=== PATIENT | male | born 1965 | race Caucasian/White ===

== ENCOUNTER 2025-03-20 10:26 | Outpatient (AMB) | payer MEDICARE, SELFPAY ==
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
[2025-03-20 10:30] VITALS: BP 130/90; PULSE 122; O2SAT 98; BMI 30.1
--- OUTSIDE RECORDS SUMMARY | 2025-03-20 21:34 | XMS_ITS | Data Portability ---
Author Organization [place] [facility], Allergy Address [address] [place] [address] Care Team Providers Care Administrative Volunteer Name Role Phone BRETT WARREN Primary Care Provider [facility] Pill Packer Assessment Encounter Date Assessment Date Assessment LastModified by Organization Details LastModified Time 10/11/2024 10/11/2024 The right ear continues to remain well-healed following removal of cholesteatoma. No signs of recurrence or problems with the reconstruction. Left ear remains healthy appearing. Audiometric testing today shows similar level of sensorineural hearing thresholds in comparison to his last audiogram back in June 2023. Today we discussed that his hearing loss is due to his underlying sensorineural hearing thresholds, not related to his previous surgery. His current use of amplification is the best remedy for this type of loss. I recommended he bring the new audiogram back to his budget specialist in [place] to ensure that his hearing aids are adjusted to match his current level of hearing loss. Patient does not need further cholesteatoma surveillance but he may follow-up as needed. Not available 10/11/2024 11:52:41 Plan of Treatment Reminders Order Date Submit Date Provider Last Modified By Organization Details Last Modified Time Details Appointments None record ed. Lab None record ed. Referral None record ed. Procedures None record ed. Surgeries None record ed. Imaging None record ed. Medication Orders None record ed. Patient TargetsNo targets recorded. Patient InstructionsNo instructions recorded. Reason for Referral None Reported. Results Created Date Observation Date Name Description Value Unit Range Abnormal Flag Note LastModifiedBy Organization Detail LastModifiedTime 10/12/19 25 audio gram No observ ation record ed. BARCODE Not Available 2024 13:12:38 Result Notes None recorded. 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 [id number] 06546 Completed 201812/04/2023 Choleste atoma of attic, right ear; Note: Date Diagnose d: 9 3:46 PM (H71.01) Not Available [facility] 4 02:58:54 Mixed conducti ve and sensorin eural hearing loss, bilatera l 750295439 Active 2018 Mixed conducti ve and sensorin eural hearing loss, bilatera l; Note: Date Diagnose d: 9 9:07 AM (H90.6) AYSHA ZIMMERMAN MD [address] [place] [address], [place], [address] , [facility] 4 20:53:07 Partial loss of ear ossicles 30838551 Active 2018 Partial loss of ear ossicles , right ear; Note: Date Diagnose d: 12/10/2018 4:04 PM (H74.321 ) Not Available [facility] 4 02:58:56 Follow-u p visit Active 2018 Medical surveill ance followin g complete d treatmen t; Note: Date Diagnose d: 9 2:13 PM (Z09) Not Available [facility] 4 02:58:55 Otorrhea of right ear 43803893698 00106 Active 2020 Otorrhea , right ear; Note: Date Diagnose d: 1 11:57 AM (H92.11) Otorrh ea, right ear; Note: Date Diagnose d: 9 3:43 PM (H92.11) ; Start Date : 09/22/19 19 Not Available [facility] 4 02:58:56 Pain of left temporom andibula r joint 86671075047 679640 Active 2020 Arthralg ia of left temporom andibula r joint; Note: Date Diagnose d: 04/18/20 11:44 AM (M26.622 ) Not Available [facility] 4 02:58:56 Dental caries 74525559 Active 2020 Dental caries, unspecif ied; Note: Date Diagnose d: 04/18/20 11:44 AM (K02.9) Not Available [facility] 4 02:58:56 Dysfunct ion of reed goel eustachi an tubes 59635849772 19629 Active 2024 OUSMANE PEREIRA, [facility] [address],[place] [address], [place], [address] , [facility] 5 11:32:13 Mixed conducti ve and sensorin eural hearing loss, reed goel 640112225 Active 2024 OUSMANE PEREIRA, [facility] [address],[place] [address], [place], [address] , [facility] 5 11:33:56 Problem Notes None recorded. Procedures Surgical History Date Name Laterality Status Provider Name and Address Organization Details Recorded Time 10/11/2024 Comp Audio with Tymps - 78738 & 15620 completed OUSMANE PEREIRA, [address],[place] [address], [place], [address], [facility] 10/11/2024 11:31:46 Imaging Results None recorded. Procedure Notes None recorded. Medical Equipment None Reported. Allergies No known drug allergies Medications Name Sig Start Date Stop Date Status Note LastModified by Organization Details LastModified Time losartan 50 mg tablet TOME 1 TABLETA POR V A ORAL TODOS LOS D 10/11 completed Not Available Not Available Not Available atorvasta tin 80 mg tablet TOME 1 TABLETA POR V A ORAL TODOS LOS D AL ACOSTARS E active Not Available Not Available No t Available gabapenti n 600 mg tablet 06/14 completed Medicati on ID: [id number] D uration Value: 30 Brand Name: gabapent in Send Method: E-Prescr ibed Sub s Allowed: subs OK Speci al Instruct ion: TAKE 1 TABLET BY MOUTH TWICE A DAY Medi cationGe nericNam e: gabapent in Not Available Not Available Not Available trazodone 50 mg tablet 10/28 completed Medicati on ID: [id number] D uration Value: 30 Brand Name: trazodon e Send Method: E-Prescr ibed Sub s Allowed: subs OK Speci al Instruct ion: TAKE 1 TABLET BY MOUTH EVERYDAY AT BEDTIME Medicati onGeneri cName: trazodon e Not Available Not Available Not Available sucralfat e 1 gram tablet TAKE 1 TABLET BY MOUTH 2 TIMES A DAY. active Not Available Not Available No t Available prednison e 20 mg tablet TOME 1 TABLETA POR V A ORAL TODOS LOS D FOR 14 DAYS active Not Available Not Available No t Available Ciloxan 0.3 % eye drops 10/11 completed Medicati on ID: [id number] D uration Value: 14 Prescri bed By Name: JEN Yeager nd Name: Ciloxan Send Method: E-Prescr ibed Sub s Allowed: subs OK Speci al Instruct ion: Instill 4 drops twice a day into the affected ear. Med icationG enericNa me: Ciloxan Not Available Not Available Not Available omeprazol e 40 mg capsule,d elayed release TOME DC CAPSULA TODOS LOS PIERCE EN LA MANANA ANTES DEL DESAYUNO active Not Available Not Available No t Available aspirin 81 mg tablet,de layed release TOME DC TABLETA POR V A ORAL TODOS LOS D active Not Available Not Available No t Available tramadol 50 mg tablet 10/28 completed Medicati on ID: [id number] B rand Name: tramadol Send Method: E-Prescr ibed Sub s Allowed: subs OK Speci al Instruct ion: TAKE 1 TABLET BY MOUTH AT BEDTIME NEEDED FOR SEVERE BACK PAIN (7 10) Medi cationGe nericNam e: tramadol Not Available Not Available Not Available acetamino phen 500 mg tablet TOME 1 TABLETA POR VIA ORAL CADA 6 HORAS CUANDO SEA NECESARI O PARA EL DOLOR active Not Available Not Available No t Available pantopraz ole 20 mg tablet,de layed release 10/11 completed Medicati on ID: [id number] B rand Name: pantopra zole Sen d Method: E-Prescr ibed Sub s Allowed: subs OK Medic ationGen ericName : pantopra zole Not Available Not Available Not Available losartan 100 mg-hydroc hlorothia zide 25 mg tablet TOME 1 TABLETA POR V A ORAL TODOS LOS D active Not Available Not Available No t Available famotidin e 20 mg tablet 10/28 completed Medicati on ID: [id number] B rand Name: famotidi ne Send Method: E-Prescr ibed Sub s Allowed: subs OK Speci al Instruct ion: TAKE 1 TAB BY MOUTH 2 (TWO) TIMES DAILY NEEDED FOR HEARTBUR N Medica tionGene ricName: famotidi ne Not Available Not Available Not Available gabapenti n 800 mg tablet 10/28 completed Medicati on ID: [id number] B rand Name: gabapent in Send Method: E-Prescr ibed Sub s Allowed: subs OK Speci al Instruct ion: TAKE 1 TABLET BY MOUTH THREE TIMES A DAY Medi cationGe nericNam e: gabapent in Not Available Not Available Not Available meclizine 25 mg tablet TAKE 1 TABLET BY MOUTH ONCE DAILY NEEDED FOR NAUSEA. active Not Available Not Available No t Available baclofen 10 mg tablet 10/11 completed Medicati on ID: [id number] B rand Name: baclofen Send Method: E-Prescr ibed Sub s Allowed: subs OK Speci al Instruct ion: TAKE 1 TABLET BY MOUTH THREE TIMES A DAY NEEDED FOR MUSCLE SPASMS M edicatio nGeneric Name: baclofen Not Available Not Available Not Available lidocaine 5 % topical patch 10/28 completed Medicati on ID: [id number] B rand Name: lidocain e Send Method: E-Prescr ibed Sub s Allowed: subs OK Speci al Instruct ion: PLACE 1 PATCH ONTO THE SKIN EVERY 12 (TWELVE) HOURS 12 HOURS ON AND OFF Medi cationGe nericNam e: lidocain e Not Available Not Available Not Available hydrochlo rothiazid e 12.5 mg capsule TOME 1 C PSULA POR V A ORAL TODOS LOS D active Not Available Not Available No t Available gabapenti n 300 mg capsule 05/24 completed Medicati on ID: [id number] R marycruz: () Brand Name: gabapent in Send Method: E-Prescr ibed Sub s Allowed: subs OK Speci al Instruct ion: PLEASE SEE ATTACHED FOR DETAILED DIRECTIO NS Medic ationGen ericName : gabapent in Not Available Not Available Not Available diclofena c sodium 75 mg tablet,de layed release TOME 1 TABLETA POR V A ORAL DOS VECES AL D A POR 2 SEMANAS 10/11 completed Not Available Not Available Not Available furosemid e 20 mg tablet 10/28 completed Medicati on ID: [id number] B rand Name: furosemi de Send Method: E-Prescr ibed Sub s Allowed: subs OK Medic ationGen ericName : furosemi de Not Available Not Available Not Available losartan 100 mg tablet TOME 1 TABLETA POR VIA ORAL TODOS [place] PIER[place] active Not Available Not Available No t Available fluoxetin e 20 mg capsule TOME 1 C PSULA POR V A ORAL TODOS LOS D active Not Available Not Available No t Available naproxen 500 mg tablet 05/24 completed Medicati on ID: [id number] R marycruz: () Brand Name: naproxen Send Method: E-Prescr ibed Sub s Allowed: subs OK Speci al Instruct ion: TAKE 1 TABLET BY MOUTH TWICE A DAY Medi cationGe nericNam e: naproxen Not Available Not Available Not Available oxycodone 5 mg tablet 1 tablet by mouth 10/11 completed Medicati on ID: [id number] D uration Value: 3 Prescri bed By Name: Jessica Mar nd Name: oxycodon e Send Method: E-Prescr ibed Sub s Allowed: subs OK Medic ationGen ericName : oxycodon e Not Available Not Available Not Available TobraDex 0.3 %-0.1 % eye drops,sen pension 04/18 completed Medicati on ID: [id number] P todd d By Name: JEN Mcghee nd Name: TobraDex Send Method: E-Prescr ibed Sub s Allowed: subs OK Speci al Instruct ion: Instill 3 drops in the affect ear BID for 14 days Med icationG enericNa me: TobraDex Not Available Not Available Not Available Ciprodex 0.3 %-0.1 % ear drops,sen pension 4 drop 10/11 completed Medicati on ID: [id number] D uration Value: 14 Prescri bed By Name: Maria Guadalupe Arriaga M.D. Bra nd Name: Ciprodex Send Method: E-Prescr ibed Sub s Allowed: subs OK Medic ationGen ericName : Ciprodex Not Available Not Available Not Available pregabali n 75 mg capsule 10/11 completed Medicati on ID: [id number] B rand Name: pregabal in Send Method: E-Prescr ibed Sub s Allowed: subs OK Medic ationGen ericName : pregabal in Not Available Not Available Not Available pregabali n 100 mg capsule TOME 1 C PSULA POR V A ORAL TARA VECES AL D A active Not Available Not Available No t Available Ranitidin e Hcl 10/24 completed Medicati on ID: [id number] D uration Value: 30 Brand Name: ranitidi ne hcl Send Method: E-Prescr ibed Sub s Allowed: subs OK Speci al Instruct ion: TAKE 1 TABLET BY MOUTH TWICE A DAY FOR HEARTBUR N Medica tionGene ricName: ranitidi ne hcl Not Available Not Available Not Available oxycodone 10 mg tablet 11/16 completed Medicati on ID: [id number] D uration Value: 7 Brand Name: oxycodon e Send Method: E-Prescr ibed Sub s Allowed: subs OK Speci al Instruct ion: TAKE 1 TABLET BY MOUTH EVERY 6 HOURS NEEDED FOR PAIN Med icationG enericNa me: oxycodon e Not Available Not Available Not Available melatonin 5 mg tablet TOME 1 TABLETA POR V A ORAL TODOS LOS D EN LA NOCHE active Not Available Not Available No t Available Vitals None Recorded Social History None recorded. Functional Status None recorded. Mental Status None recorded. Family History Nothing Reported. Medical History Condition Response Stroke Y Hypertension Y Depression Y GERD/Reflux Y Past Encounters Encounter ID Performer Location Encounter Start Date Encounter Closed Date Diagnosis/Indication Diagnosis SNOMED-CT Code Diagnosis ICD10 Code Diagnosis IMO Codes Diagnosis Note [id number] MARIA GUADALUPE ARRIAGA MD [facility] [address] [place] [address] 10/11/2024 10:50:20 10/11/2024 11:52:56 Partial loss of ear ossicles [id number] H74.321 Follow-up visit [id number] 9 Z09 Dysfunctio n of bilateral eustachian tubes [id number] 229479 H69.93 37148022 Mixed cond uctive and sensorineural hearing loss, bilateral 591948554 H90.6 040647 Right Ear:Modera te to severe MHL with good speech discrimina tion.Type B tympanogra m.Left Ear:Modera te to severe MHL with good speech discrimina tion.Type B tympanogra m. Health Concerns Section Related Observation LastModified by Organization Detai ls LastModified Time None Recorded Concern Status LastModified by Organization Details LastModified Time None Recorded Advance Directives Directive None Recorded Payers Insurance Date Sequence Insurance Name Policy Number Policy Lozano Covered Member ID Lozano Member ID Guarantor Name 10/11/2024 2 [place] [facility] Emile Michaud [id number] Emile Michaud 10/11/2024 1 [facility] (MEDICARE REPLACEMENT/ ADVANTAGE - PPO) [id number] Emile Michaud [id number] Emile Michaud Notes Date Note Type Note Provider Name and Address Organization Details Recorded Time 10/11/2024 text/html Patient is status post two-stage surgery for cholesteatoma, last procedure November 2019. He comes in for cholesteatoma surveillance. He has binaural amplification dispensed through [facility] audiology. Patient had to change care to a place in [place] due to and some insurance changes.Patient reports that he thinks his hearing is worse than it was when we last tested him a year ago. He still thinks he is hearing well with his hearing aids and however. Patient comes in today accompanied by his cousin who is helping with [place]an translation. MARIA GUADALUPE ARRIAGA MD [address] [place] [address], [phone], [facility] - [facility] 10/11/2024 11:53:01
== END 2025-03-20 11:06 | disposition home or self-care (01) ==
LOC: HO.HSMS 10:27
PROVIDERS: PCP Student in an Organized Health Care Education/Training Program; Visit Provider Psychiatry & Neurology Neurology
DX: I65.09 Occlusion and stenosis of unspecified vertebral artery (principal); R06.83 Snoring; G47.10 Hypersomnia, unspecified
CPT/HCPCS: 99204; G2211

== ENCOUNTER → 2025-03-20 10:26 | Outpatient (BNVA) | payer MEDICARE, SELFPAY | PROVIDERS: PCP Student in an Organized Health Care Education/Training Program; Visit Provider Psychiatry & Neurology Neurology | DX: I65.09 Occlusion and stenosis of unspecified vertebral artery (principal); R06.83 Snoring; G47.10 Hypersomnia, unspecified | CPT/HCPCS: 99202 ==